=== PATIENT | female | born 1970 | race Caucasian/White ===

== ENCOUNTER 2017-10-23 21:43 | Inpatient (IN) | payer OTHER ==
[~2017-10-23] VITALS: Ht 167.6 cm; Wt 123.4 kg
[~2017-10-23 21:43] MED LIST: ADVIL200 MG PO; HYDROCHLOROTHIA25 MG PO; HYDROCODON-ACE1 EAC7 PO; IBUPROFEN800 MG PO; PROZAC40 MG PO; TYLENOL EXTRA500 MG PO
[2017-10-24 07:50] VITALS: BP 126/79
[2017-10-24 13:20] VITALS: BP 136/73
[2017-10-24 20:20] VITALS: BP 123/62
[2017-10-25 00:26] VITALS: BP 121/60
[2017-10-25 04:00] VITALS: BP 110/57
[2017-10-25 07:02] LABS: BASOPHIL (%) 0.1 % (0-1); EOSINOPHIL (%) 0 % (0-5); HEMATOCRIT 34.1 % (36.0-46.0); IMMATURE GRANULOCYTE (%) 0.6 % (0.0-0.7); LYMPHOCYTE (%) 10.5 % (15-42); LYMPHOCYTE COUNT 0.9 K/uL (1.0-2.8); MCH 28.5 PG (29.0-34.0); MCHC 32.8 G/DL (30.0-36.0); MCV 86.8 FL (83-99); MONOCYTE (%) 7.2 % (3-12); MONOCYTE COUNT 0.6 K/uL (0-0.8); NEUTROPHIL (%) 81.6 % (45-76); NEUTROPHIL COUNT 6.8 K/uL (1.8-6.4); PLATELET COUNT 305 K/uL (156-360); RBC DIS.WIDTH-CV 12.7 % (11.8-14.6); RBC DIS.WIDTH-SD 40.4 % (39-53); RED BLOOD COUNT 3.93 M/uL (3.80-5.20); WHITE BLOOD COUNT 8.3 K/uL (4.1-10.2)
[2017-10-25 07:07] LABS: HEMOGLOBIN 11.2 G/DL (11.9-15.5)
[2017-10-25 08:50] VITALS: BP 102/53
== END 2017-10-25 10:33 | disposition home or self-care (01) | DRG 621 ==
LOC: ENRESERV 21:43 → 2SOUTH 10-24 07:12 → ENRESERV 10-24 12:15 → 2SOUTH 10-24 12:48 → 2EASTP 10-24 13:19 → 2SOUTH 10-24 14:23 → ENPENDDIS 10-25 → 2EASTP 10-25 10:33
PROVIDERS: Surgery
PROC: 0DB64Z3 Excision of Stomach, Percutaneous Endoscopic Approach, Vertical (ICD-10-PCS; principal; 2017-10-24)
DX: E66.01 Morbid (severe) obesity due to excess calories (principal); Z68.41 Body mass index [BMI] 40.0-44.9, adult
CPT/HCPCS: 82948; 85025; C9113; J0131; J0330; J0690; J1100; J1170; J1644; J1650; J1885; J2250; J2405; J2710; J3010; J3480; J7120; Q0175; S0020